=== PATIENT | female | born 1960 | race Caucasian/White ===

== ENCOUNTER 2017-03-15 15:35 | Inpatient (IN) | payer OTHER ==
[~2017-03-15] VITALS: Ht 170.2 cm; Wt 137.8 kg
[2017-03-15] MEDS ORDERED: SODIUM CHLORIDE FLUSH 10ML SYR IVF ONE (16:00)
[2017-03-15 16:36] LABS: BASOPHILS # (AUTO) 0.03 x10^3/uL (0-0.1); BASOPHILS % (AUTO) 0 % (0-1); EOSINOPHILS # (AUTO) 0.19 x10^3/uL (0-0.4); EOSINOPHILS % (AUTO) 2 % (1-7); LYMPHOCYTES # (AUTO) 1.74 x10^3/uL (1-3.4); LYMPHOCYTES % (AUTO) 19 % (22-44); MD NO; MEAN CORPUSCULAR HEMOGLOBIN 28.3 pg (27.0-34.8); MEAN CORPUSCULAR VOLUME 85.8 fL (80-100); MEAN PLATELET VOLUME 6.8 fL (7.4-10.4); MONOCYTES # (AUTO) 0.72 x10^3/uL (0.2-0.8); MONOCYTES % (AUTO) 8 % (2-9); NEUTROPHILS # (AUTO) 6.28 x10^3/uL (1.8-6.8); NEUTROPHILS % (AUTO) 70 % (42-75); PLATELET COUNT 302 x10^3/uL (130-400); RED BLOOD COUNT 5.15 x10^6/uL (3.82-5.3); RED CELL DISTRIBUTION WIDTH 13.4 % (9.6-15.2)
[2017-03-15 16:50] LABS: ALBUMIN 3.7 g/dL (3.4-5.0); ANION GAP 7 mmol/L (5-15); CALCIUM 8.6 mg/dL (8.5-10.1); CHLORIDE 103 mmol/L (98-107); CREATININE 0.62 mg/dL (0.55-1.02)
[2017-03-15 16:53] LABS: TROPONIN I < 0.015 ng/mL (0.000-0.045)
[2017-03-15] MEDS ORDERED: ALBUTEROL/IPRATROPIUM 2.5MG/0.5MG, 3 ML ONE (19:11)
[2017-03-15] MEDS ORDERED: CEFTRIAXONE PMX 1GM/50ML 50 ML ONE (19:53)
[2017-03-15] MEDS ORDERED: CEFTRIAXONE PMX 1GM/50ML 50 ML IVPB ONE (20:00)
[2017-03-15] MEDS ORDERED: AZITHROMYCIN 500 MG in SODIUM CHLORIDE 0.9% 250 ML IVPB ONE (20:00)
[2017-03-15] MEDS ORDERED: HYDR200T PO (20:00)
[2017-03-15] MEDS ORDERED: SODIUM CHLORIDE FLUSH 10ML SYR IVF PRN (20:00)
[2017-03-15] MEDS ORDERED: MELO15TA6 PO (20:00)
[2017-03-15] MEDS ORDERED: LEVO200T PO (20:00)
[2017-03-15 21:59] VITALS: BP 155/73
[2017-03-15] MEDS ORDERED: ENALAPRILAT 1.25 MG/ML, 2ML IVPush PRN (22:00)
[2017-03-15] MEDS ORDERED: ONDANSETRON 2MG/ML, 2ML IVPush PRN (22:00)
[2017-03-15] MEDS ORDERED: BISACODYL 10 MG SUPP PR PRN (22:00)
[2017-03-15] MEDS ORDERED: morphine SULFATE 10 MG/ML, 1ML IVPush PRN (22:00)
[2017-03-15] MEDS ORDERED: POLYETHYLENE GLYCOL 17 GM PACKET PO PRN (22:00)
[2017-03-15] MEDS ORDERED: hydrALAzine 20 MG/ML, 1ML IVPush PRN (22:00)
[2017-03-15] MEDS ORDERED: MELOXICAM 15 MG TABLET PO PRN (22:30)
[2017-03-15 22:39] LABS: FREE T4 (FREE THYROXINE) 1.29 ng/dL (0.76-1.46); THYROID STIMULATING HORMONE 2.85 mIU/L (0.358-3.740)
[2017-03-15 22:40] VITALS: BP 155/73
[2017-03-15 22:44] LABS: HEMOGLOBIN A1C 6.2 % (4.2-6.3)
[2017-03-16] MEDS: SODIUM CHLORIDE 0.9% 1,000 ML IV SCH ×3 (00:30→22:39)
[2017-03-16] MEDS: HEPARIN 5,000 UNITS/ML, 1ML SQ SCH ×3 (00:31→17:31)
[2017-03-16 01:06] LABS: MICROSCOPIC INDICATED
[2017-03-16 01:12] LABS: CULTURE INDICATED? NO
[2017-03-16 01:20] VITALS: BP 137/72
[2017-03-16 01:32] LABS: RAPID INFLUENZA A Negative (Negative); RAPID INFLUENZA B Negative (Negative)
[2017-03-16] MEDS: LEVOTHYROXINE 200 MCG TABLET PO SCH (05:34)
[2017-03-16 06:04] LABS: ALBUMIN 3.4 g/dL (3.4-5.0); ANION GAP 10 mmol/L (5-15); BASOPHILS # (AUTO) 0.02 x10^3/uL (0-0.1); BASOPHILS % (AUTO) 0 % (0-1); CALCIUM 8.1 mg/dL (8.5-10.1); CHLORIDE 105 mmol/L (98-107); EOSINOPHILS % (AUTO) 0 % (1-7); LYMPHOCYTES # (AUTO) 1.09 x10^3/uL (1-3.4); LYMPHOCYTES % (AUTO) 14 % (22-44); MD NO; MEAN CORPUSCULAR HEMOGLOBIN 28.5 pg (27.0-34.8); MEAN CORPUSCULAR HGB CONC 33.1 g/dL (32.4-35.8); MEAN CORPUSCULAR VOLUME 86.1 fL (80-100); MEAN PLATELET VOLUME 7.3 fL (7.4-10.4); MONOCYTES # (AUTO) 0.16 x10^3/uL (0.2-0.8); MONOCYTES % (AUTO) 2 % (2-9); NEUTROPHILS % (AUTO) 84 % (42-75); PLATELET COUNT 311 x10^3/uL (130-400); RED BLOOD COUNT 4.92 x10^6/uL (3.82-5.3); RED CELL DISTRIBUTION WIDTH 13.4 % (9.6-15.2)
[2017-03-16 06:08] LABS: ALANINE AMINOTRANSFERASE 54 U/L (12-78); ALKALINE PHOSPHATASE 105 U/L (45-117); BILIRUBIN,TOTAL 0.4 mg/dL (0.2-1.0); CHOL/HDL RATIO 2.8; CHOLESTEROL, TOTAL 114 mg/dL (140-239); CREATININE 0.52 mg/dL (0.55-1.02); HDL CHOL % 36 % (28-40); HDL CHOLESTEROL (DIRECT) 41 mg/dL (40-60); LDL CHOLESTEROL,CALCULATED 57 mg/dL (54-169); LDL/HDL RATIO 1.4 (0.5-3.0); TOTAL PROTEIN 7.6 g/dL (6.4-8.2); TRIGLYCERIDES 80 mg/dL (50-200); VLDL CHOLESTEROL 16 mg/dL (0-25)
[2017-03-16 07:59] VITALS: BP 137/76
[2017-03-16] MEDS ORDERED: CEFTRIAXONE PMX 2GM/50ML 50 ML IV SCH (09:00)
[2017-03-16] MEDS: SENNA/DOCUSATE TABLET PO SCH (09:00)
[2017-03-16] MEDS: HYDROXYCHLOROQUINE 200 MG TABLET PO SCH (09:07)
[2017-03-16] MEDS: ACETAMINOPHEN 325 MG TABLET PO PRN ×2 (09:08→22:38)
[2017-03-16 13:02] VITALS: BP 109/72
[2017-03-16] MEDS: CEFTRIAXONE 2 GM in SODIUM CHLORIDE 0.9% 50 ML IV SCH (13:12)
[2017-03-16] MEDS: AZITHROMYCIN 500 MG in SODIUM CHLORIDE 0.9% 250 ML IV SCH (17:30)
[2017-03-16 20:56] VITALS: BP 139/78
[2017-03-17] MEDS: HEPARIN 5,000 UNITS/ML, 1ML SQ SCH ×3 (00:39→16:33)
[2017-03-17 00:40] VITALS: BP 143/80
[2017-03-17] MEDS: OXYcodone IR 5MG TABLET PO PRN ×3 (01:35→16:33)
[2017-03-17] MEDS: LEVOTHYROXINE 200 MCG TABLET PO SCH (05:39)
[2017-03-17 05:58] LABS: BASOPHILS # (AUTO) 0.02 x10^3/uL (0-0.1); BASOPHILS % (AUTO) 0 % (0-1); EOSINOPHILS # (AUTO) 0.29 x10^3/uL (0-0.4); EOSINOPHILS % (AUTO) 4 % (1-7); LYMPHOCYTES # (AUTO) 2.57 x10^3/uL (1-3.4); LYMPHOCYTES % (AUTO) 34 % (22-44); MD NO; MEAN CORPUSCULAR HEMOGLOBIN 28.7 pg (27.0-34.8); MEAN CORPUSCULAR HGB CONC 32.9 g/dL (32.4-35.8); MEAN CORPUSCULAR VOLUME 87.2 fL (80-100); MEAN PLATELET VOLUME 7.4 fL (7.4-10.4); MONOCYTES # (AUTO) 0.76 x10^3/uL (0.2-0.8); MONOCYTES % (AUTO) 10 % (2-9); NEUTROPHILS # (AUTO) 3.99 x10^3/uL (1.8-6.8); NEUTROPHILS % (AUTO) 52 % (42-75); PLATELET COUNT 346 x10^3/uL (130-400); RED BLOOD COUNT 4.64 x10^6/uL (3.82-5.3); RED CELL DISTRIBUTION WIDTH 13.6 % (9.6-15.2)
[2017-03-17 06:02] LABS: ANION GAP 8 mmol/L (5-15); CHLORIDE 108 mmol/L (98-107)
[2017-03-17 06:04] LABS: CREATININE 0.61 mg/dL (0.55-1.02)
[2017-03-17 06:54] VITALS: BP 149/80
[2017-03-17] MEDS: HYDROXYCHLOROQUINE 200 MG TABLET PO SCH (08:33)
[2017-03-17] MEDS: SENNA/DOCUSATE TABLET PO SCH (08:35)
[2017-03-17] MEDS: CEFTRIAXONE 2 GM in SODIUM CHLORIDE 0.9% 50 ML IV SCH (14:06)
[2017-03-17] MEDS: SODIUM CHLORIDE 0.9% 1,000 ML IV SCH (14:06)
[2017-03-17 14:11] VITALS: BP 149/81
[2017-03-17] MEDS ORDERED: ALBUTEROL SULFATE 2.5 MG/3 ML ONE (16:18)
[2017-03-17] MEDS: ALBUTEROL SULFATE 2.5 MG/3 ML NPPB PRN (16:24)
[2017-03-17] MEDS: AZITHROMYCIN 500 MG in SODIUM CHLORIDE 0.9% 250 ML IV SCH (16:33)
[2017-03-17 19:26] VITALS: BP 145/70
[2017-03-18] MEDS: HEPARIN 5,000 UNITS/ML, 1ML SQ SCH ×4 (00:28→23:47)
[2017-03-18 00:30] VITALS: BP 131/80
[2017-03-18] MEDS: OXYcodone IR 5MG TABLET PO PRN ×5 (03:58→23:47)
[2017-03-18] MEDS: LEVOTHYROXINE 200 MCG TABLET PO SCH (06:00)
[2017-03-18] MEDS: SENNA/DOCUSATE TABLET PO SCH (08:21)
[2017-03-18] MEDS: ACETAMINOPHEN 325 MG TABLET PO PRN (08:22)
[2017-03-18] MEDS: HYDROXYCHLOROQUINE 200 MG TABLET PO SCH (08:22)
[2017-03-18 08:33] VITALS: BP 136/80
[2017-03-18] MEDS: ALBUTEROL SULFATE 2.5 MG/3 ML NPPB PRN (10:35)
[2017-03-18] MEDS: CEFTRIAXONE 2 GM in SODIUM CHLORIDE 0.9% 50 ML IV SCH (13:30)
[2017-03-18 14:16] VITALS: BP 136/79
[2017-03-18] MEDS: SODIUM CHLORIDE 0.9% 1,000 ML IV SCH (16:59)
[2017-03-18] MEDS: AZITHROMYCIN 500 MG in SODIUM CHLORIDE 0.9% 250 ML IV SCH (16:59)
[2017-03-18 18:53] VITALS: BP 143/76
[2017-03-19 00:41] VITALS: BP 152/77
[2017-03-19] MEDS: LEVOTHYROXINE 200 MCG TABLET PO SCH (05:04)
[2017-03-19] MEDS: OXYcodone IR 5MG TABLET PO PRN ×2 (06:55→12:31)
[2017-03-19] MEDS: SENNA/DOCUSATE TABLET PO SCH (08:15)
[2017-03-19] MEDS: HEPARIN 5,000 UNITS/ML, 1ML SQ SCH ×2 (08:22→16:05)
[2017-03-19] MEDS: SODIUM CHLORIDE 0.9% 1,000 ML IV SCH (08:22)
[2017-03-19] MEDS: HYDROXYCHLOROQUINE 200 MG TABLET PO SCH (08:28)
[2017-03-19 08:33] VITALS: BP 159/94
[2017-03-19] MEDS ORDERED: AZIT500T PO (11:37)
[2017-03-19] MEDS ORDERED: GUAI-110 PO (11:37)
[2017-03-19] MEDS ORDERED: CEFD300C37 PO (11:37)
[2017-03-19] MEDS: CEFTRIAXONE 2 GM in SODIUM CHLORIDE 0.9% 50 ML IV SCH (12:32)
[2017-03-19] MEDS ORDERED: FLU VACC QS2017-18 (36MOS+) UP/PF 0.5 ML IM-VACC ONE (13:00)
[2017-03-19] MEDS ORDERED: PNEUMOCOCCAL 23 VACCINE IM-VACC ONE (13:00)
[2017-03-19 13:02] VITALS: BP 174/100
[2017-03-19] MEDS: ACETAMINOPHEN 325 MG TABLET PO PRN (15:03)
[2017-03-19] MEDS: AZITHROMYCIN 500 MG in SODIUM CHLORIDE 0.9% 250 ML IV SCH (16:24)
== END 2017-03-19 16:48 | disposition home or self-care (01) | DRG 871 ==
LOC: ED 19:38 → EDIP 21:29 → 3NE 21:59
PROVIDERS: ADMIT Internal Medicine; ATTEND Internal Medicine
DX: A41.9 Sepsis, unspecified organism (principal); J96.01 Acute respiratory failure with hypoxia; E66.01 Morbid (severe) obesity due to excess calories; J15.9 Unspecified bacterial pneumonia; M32.9 Systemic lupus erythematosus, unspecified; Z68.42 Body mass index [BMI] 45.0-49.9, adult; E03.9 Hypothyroidism, unspecified; I51.7 Cardiomegaly; E74.39 Other disorders of intestinal carbohydrate absorption; Z90.710 Acquired absence of both cervix and uterus; Z23 Encounter for immunization
CPT/HCPCS: 36415; 71046; 80048; 80053; 80061; 81001; 82040; 83036; 83605; 83735; 84145; 84439; 84443; 84484; 85025; 87040; 87070; 87205; 87400; 90686; 90732; 93005; 93306; 94640; 96365; 96368; J0456; J0696; J1644; J7613; J7030; J7050; J7512

== ENCOUNTER → 2017-04-17 | Outpatient (CLI) | payer OTHER ==
[~2017-04-17] MED LIST: AZIT500T PO; CEFD300C37 PO; GUAI-110 PO; HYDR200T PO; LEVO200T PO; MELO15TA6 PO
== END ==
LOC: CFH 15:51
PROVIDERS: ATTEND Internal Medicine
DX: M79.89 Other specified soft tissue disorders (principal); R22.42 Localized swelling, mass and lump, left lower limb

== ENCOUNTER → 2017-06-18 | Outpatient (CLI) | payer OTHER ==
[~2017-06-18] MED LIST changes: -HYDR200T PO; +HYDR200T72 PO
== END | disposition home or self-care (01) ==
LOC: CARD 12:52
PROVIDERS: ATTEND Specialist
DX: J18.9 Pneumonia, unspecified organism (principal); R06.09 Other forms of dyspnea; R09.02 Hypoxemia; M32.19 Other organ or system involvement in systemic lupus erythematosus; E66.9 Obesity, unspecified
CPT/HCPCS: 94060; 94726; 94729

== ENCOUNTER → 2017-07-25 | Outpatient (CLI) | payer OTHER | END | disposition home or self-care (01) | LOC: CFH 10:30 | PROVIDERS: ATTEND Internal Medicine Critical Care Medicine | DX: R91.1 Solitary pulmonary nodule (principal) | CPT/HCPCS: 71250 ==

== ENCOUNTER 2017-11-23 10:57 | Emergency (ER) | payer OTHER ==
[~2017-11-23] VITALS: Ht 170.2 cm; Wt 144.4 kg
[2017-11-23] MEDS ORDERED: SODIUM CHLORIDE FLUSH 10ML SYR IVF ONE (11:30)
[2017-11-23 11:55] LABS: BASOPHILS # (AUTO) 0.04 x10^3/uL (0-0.1); BASOPHILS % (AUTO) 1 % (0-1); EOSINOPHILS # (AUTO) 0.17 x10^3/uL (0-0.4); EOSINOPHILS % (AUTO) 3 % (1-7); LYMPHOCYTES # (AUTO) 1.87 x10^3/uL (1-3.4); LYMPHOCYTES % (AUTO) 28 % (22-44); MD NO; MEAN CORPUSCULAR HEMOGLOBIN 29.2 pg (27.0-34.8); MEAN CORPUSCULAR HGB CONC 33.9 g/dL (32.4-35.8); MEAN CORPUSCULAR VOLUME 86.2 fL (80-100); MEAN PLATELET VOLUME 7.2 fL (7.4-10.4); MONOCYTES # (AUTO) 0.56 x10^3/uL (0.2-0.8); MONOCYTES % (AUTO) 8 % (2-9); NEUTROPHILS # (AUTO) 4.13 x10^3/uL (1.8-6.8); NEUTROPHILS % (AUTO) 61 % (42-75); PLATELET COUNT 371 x10^3/uL (130-400); RED BLOOD COUNT 4.34 x10^6/uL (3.82-5.3); RED CELL DISTRIBUTION WIDTH 12.8 % (9.6-15.2)
[2017-11-23 12:06] LABS: ALANINE AMINOTRANSFERASE 41 U/L (12-78); ALBUMIN 3.8 g/dL (3.4-5.0); ANION GAP 6 mmol/L (5-15); CALCIUM 8.9 mg/dL (8.5-10.1); CHLORIDE 107 mmol/L (98-107); CREATININE 0.49 mg/dL (0.55-1.02)
[2017-11-23 12:10] LABS: ALKALINE PHOSPHATASE 71 U/L (45-117); BILIRUBIN,TOTAL 0.3 mg/dL (0.2-1.0); TOTAL PROTEIN 7.5 g/dL (6.4-8.2); TROPONIN I < 0.015 ng/mL (0.000-0.045)
[2017-11-23] MEDS ORDERED: ONDANSETRON ODT 4 MG PO ONE (12:30)
[2017-11-23] MEDS ORDERED: MORPHINE SULFATE 4 MG/ML, 1ML IVPush PRN (12:30)
[2017-11-23] MEDS ORDERED: OMNIPAQUE 350 MG/ML, 150 ML BOTTLE ONE (14:06)
[2017-11-23 14:46] VITALS: BP 136/76
== END 2017-11-23 14:29 | disposition home or self-care (01) ==
LOC: ED 12:52
DX: R07.2 Precordial pain (principal); R06.00 Dyspnea, unspecified; M62.830 Muscle spasm of back
CPT/HCPCS: 36415; 71045; 71275; 80053; 83880; 84484; 85025; 93005; 99285; Q9967

== ENCOUNTER → 2019-02-03 | Outpatient (CLI) | payer OTHER ==
[~2019-02-03] MED LIST changes: +REGADENOSON 0.4 MG/5 ML SYRINGE ONE
== END | disposition home or self-care (01) ==
LOC: CFH 07:48
PROVIDERS: ATTEND Internal Medicine Cardiovascular Disease
DX: R94.31 Abnormal electrocardiogram [ECG] [EKG] (principal); I10 Essential (primary) hypertension
CPT/HCPCS: 78452; 93017; A9502; C8929; J2785; Q9957

== ENCOUNTER → 2020-01-20 | Outpatient (CLI) | payer OTHER ==
[~2020-01-20] MED LIST changes: -REGADENOSON 0.4 MG/5 ML SYRINGE ONE
== END | disposition home or self-care (01) ==
LOC: CFH 13:38
PROVIDERS: ATTEND Nurse Practitioner Family
DX: N20.0 Calculus of kidney (principal); M95.4 Acquired deformity of chest and rib; M47.816 Spondylosis without myelopathy or radiculopathy, lumbar region; Z87.442 Personal history of urinary calculi
CPT/HCPCS: 74176

== ENCOUNTER → 2020-07-12 | Outpatient (CLI) | payer OTHER | END | disposition home or self-care (01) | LOC: CVU 09:28 | PROVIDERS: ATTEND Internal Medicine Cardiovascular Disease | DX: I11.9 Hypertensive heart disease without heart failure (principal); E03.9 Hypothyroidism, unspecified | CPT/HCPCS: C8929; Q9957 ==